=== PATIENT | female | born 1995 | race Caucasian/White ===

== ENCOUNTER 2018-04-06 14:27 | Emergency (ER) | payer OTHER ==
--- NOTE | 2018-04-06 16:27 | RAD ---
INDICATION: Chest pain COMPARISON: None TECHNIQUE: PA and lateral dual-energy views were obtained. FINDINGS: Bones/Soft Tissues: There are no acute bony findings. Cardiomediastinal: The cardiomediastinal silhouette is normal. Lungs: There are no infiltrates. There is no pneumothorax. Pleura: There are no pleural effusions. Other: None IMPRESSION: NEGATIVE EXAMINATION.
[2018-04-06 16:30] LABS: ABS Basophils 0 10^3/ul (0-0.2); ABS Eosinophils 0.2 10^3/ul (0-0.6); ABS Lymphocytes 2.4 10^3/ul (1.0-4.8); ABS Monocytes 0.7 10^3/ul (0-0.8); ABS Neutrophils 9.9 10^3/ul (1.5-7.7); ABS Nucleated RBC 0 10^3/ul; Eosinophil % 1.6 % (0-6); Hematocrit 44 % (35-47); Hemoglobin 14.7 g/dl (12.0-16.0); Lymphocyte % 17.9 % (25-47); Mean Corpuscular HGB Conc 34 g/dl (31-36); Mean Corpuscular Hemoglobin 27 pg (27-31); Mean Corpuscular Volume 81 fL (80-97); Mean Platelet Volume 6.7 um3 (7.4-10.4); Nucleated Red Blood Cells % 0; Platelet Count 364 10^3/ul (150-450); Red Blood Count 5.43 10^6/ul (4.00-5.40); Red Cell Distribution Width 14 % (10.5-15); White Blood Count 13.2 10^3/ul (3.5-10.8)
[2018-04-06 17:24] VITALS: BP 130/81
--- NOTE | 2018-04-07 07:18 | ED ---
HPI Chest Pain - HPI Summary HPI Summary: Patient is a 22-year-old female presenting to the ED with chief complaint of chest pain which felt like a burning to the epigastric region and left anterior wall with radiation of numbness and tingling to the left arm. She states this occurred while at work today. She said they took her blood pressure immediately following which was 192/110. She normally does not have high blood pressure. She does admit to a large amount of weight gain over the past year or so after moving here with her mother. She feels as though her brain is not significantly when she feels full or when she is hungry. She is also feeling that she cannot tell when she has to urinate and has had a few episodes of incontinence over the past 6 months. She is followed closely by her PCP who is working her up for potential causes. 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 She states she does not know if she is prediabetic or has other health issues. She takes no medications. History of intermittent anxiety, but none currently. She states she has had this type of "chest pain" for the past few months, totaling approximately 3 times. She is unsure if this is anxiety driven. - History of Current Complaint Chief Complaint: EDChestPainROMI Time Seen by Provider: 04/06/18 15:42 Hx Obtained From: Patient Hx Last Menstrual Period: DOES NOT HAVE REG PERIODS, HAS IMPLAMON Onset/Duration: Started Hours Ago Timing: Intermittent, Lasting Minutes Initial Severity: Moderate Current Severity: None Pain Intensity: 0 Pain Scale Used: 0-10 Numeric Chest Pain Location: Mid Sternal, Left Anterior Chest Pain Radiates: Yes Chest Pain Radiates To:: Arm Character: Dull/Aching Aggravating Factor(s): Nothing Alleviating Factor(s): Spontaneous Resolution Associated Signs and Symptoms: Positive: Chest Pain, Anxiety, Numbness, Tingling - Risk Factors Pulmonary Embolism Risk Factors: Negative TAD Risk Factors: Negative AMI/ACS Risk Factors: Obesity - Allergy/Home Medications Allergies/Adverse Reactions: Allergies Allergy/AdvReac Type Severity Reaction Status Date / Time hydrocortisone Allergy Hives Verified 04/06/18 14:31 Home Medications: Home Medications NK [No Home Medications Reported] 04/06/18 [History Confirmed 04/06/18] PMH/Surg Hx/FS Hx/Imm Hx Previously Healthy: Yes Endocrine/Hematology History: Denies: Hx Diabetes, Hx Thyroid Disease Cardiovascular History: Denies: Hx Hypertension Respiratory History: Denies: Hx Asthma - Surgical History Surgery Procedure, Year, and Place: Eye surgery as a toddler, [place] 2010 - Immunization History Hx Pertussis Vaccination: No Immunizations Up to Date: Unable to Obtain/Confirm Infectious Disease History: No Infectious Disease History: Denies: Traveled Outside the [place] in Last 30 Days - Social History Occupation: Employed Full-time Alcohol Use: Rare Hx Substance Use: Yes Substance Use Type: Reports: None Hx Tobacco Use: No Smoking Status (MU): Never Smoked Tobacco Review of Systems Constitutional: Negative Negative: Fever, Chills, Fatigue, Skin Diaphoresis Eyes: Negative Positive: Chest Pain Negative: Shortness Of Breath, Cough Negative: Abdominal Pain, Vomiting, Diarrhea, Nausea Genitourinary: Negative Positive: no symptoms reported, see HPI Positive: Paresthesia, Numbness Psychological: Normal All Other Systems Reviewed And Are Negative: Yes Physical Exam Triage Information Reviewed: Yes Vital Signs On Initial Exam: Initial Vitals Temp Pulse Resp BP Pulse Ox 98.7 F 87 16 175/100 100 04/06/18 14:32 04/06/18 14:32 04/06/18 14:32 04/06/18 14:32 04/06/18 14:32 Vital Signs Reviewed: Yes Appearance: Positive: Well-Appearing, Well-Nourished Skin: Positive: Warm, Skin Color Reflects Adequate Perfusion Head/Face: Positive: Normal Head/Face Inspection Eyes: Positive: EOMI, DONNIE, Conjunctiva Clear Neck: Positive: Supple, No Lymphadenopathy Respiratory/Lung Sounds: Positive: Clear to Auscultation, Breath Sounds Present Cardiovascular: Positive: RRR, Pulses are Symmetrical in both Upper and Lower Extremities Musculoskeletal: Positive: Normal, Strength/ROM Intact Neurological: Positive: Speech Normal Psychiatric: Positive: Normal, Affect/Mood Appropriate AVPU Assessment: Alert Diagnostics - Vital Signs Vital Signs Temp Pulse Resp BP Pulse Ox 04/06/18 17:23 97.6 F 74 16 130/81 99 04/06/18 14:32 98.7 F 87 16 175/100 100 - Laboratory Lab Results: Lab Results 04/06/18 04/06/18 04/06/18 Range/Units 16:06 16:06 16:06 WBC 13.2 H (3.5-10.8) 10^3/ul RBC 5.43 H (4.00-5.40) 10^6/ul Hgb 14.7 (12.0-16.0) g/dl Hct 44 (35-47) % MCV 81 (80-97) fL MCH 27 (27-31) pg MCHC 34 (31-36) g/dl RDW 14 (10.5-15) % Plt Count 364 (150-450) 10^3/ul MPV 6.7 L (7.4-10.4) um3 Neut % (Auto) 75.0 (38-83) % Lymph % (Auto) 17.9 L (25-47) % [place] % (Auto) 5.2 (0-7) % Eos % (Auto) 1.6 (0-6) % Baso % (Auto) 0.3 (0-2) % Absolute Neuts (auto) 9.9 H (1.5-7.7) 10^3/ul Absolute Lymphs (auto) 2.4 (1.0-4.8) 10^3/ul Absolute Monos (auto) 0.7 (0-0.8) 10^3/ul Absolute Eos (auto) 0.2 (0-0.6) 10^3/ul Absolute Basos (auto) 0 (0-0.2) 10^3/ul Absolute Nucleated RBC 0 10^3/ul Nucleated RBC % 0 D-Dimer, Quantitative 222 (Less Than 230) ng/mL Sodium 137 (135-145) mmol/L Potassium 3.6 (3.5-5.0) mmol/L Chloride 102 (101-111) mmol/L Carbon Dioxide 24 (22-32) mmol/L Anion Gap 11 (2-11) mmol/L BUN 14 (6-24) mg/dL Creatinine 0.91 (0.51-0.95) mg/dL Est GFR ( Amer) 91.9 (>60) Est GFR (Non-Af Amer) 76.0 (>60) BUN/Creatinine Ratio 15.4 (8-20) Glucose 87 (70-100) mg/dL Lactic Acid (0.5-2.0) mmol/L Calcium 9.6 (8.6-10.3) mg/dL Total Bilirubin 0.60 (0.2-1.0) mg/dL AST 20 (13-39) U/L ALT 21 (7-52) U/L Alkaline Phosphatase 121 H (34-104) U/L CK-MB (CK-2) 3.0 (0.6-6.3) ng/mL Troponin I 0.01 (<0.04) ng/mL B-Natriuretic Peptide ( - 100) pg/mL Total Protein 7.4 (6.4-8.9) g/dL Albumin 4.2 (3.2-5.2) g/dL Globulin 3.2 (2-4) g/dL Albumin/Globulin Ratio 1.3 (1-3) TSH 5.17 (0.34-5.60) mcIU/mL Free T4 0.93 (0.61-1.12) ng/dL Beta HCG, Quant < 0.60 mIU/mL 04/06/18 04/06/18 Range/Units 16:06 16:06 WBC (3.5-10.8) 10^3/ul RBC (4.00-5.40) 10^6/ul Hgb (12.0-16.0) g/dl Hct (35-47) % MCV (80-97) fL MCH (27-31) pg MCHC (31-36) g/dl RDW (10.5-15) % Plt Count (150-450) 10^3/ul MPV (7.4-10.4) um3 Neut % (Auto) (38-83) % Lymph % (Auto) (25-47) % [place] % (Auto) (0-7) % Eos % (Auto) (0-6) % Baso % (Auto) (0-2) % Absolute Neuts (auto) (1.5-7.7) 10^3/ul Absolute Lymphs (auto) (1.0-4.8) 10^3/ul Absolute Monos (auto) (0-0.8) 10^3/ul Absolute Eos (auto) (0-0.6) 10^3/ul Absolute Basos (auto) (0-0.2) 10^3/ul Absolute Nucleated RBC 10^3/ul Nucleated RBC % D-Dimer, Quantitative (Less Than 230) ng/mL Sodium (135-145) mmol/L Potassium (3.5-5.0) mmol/L Chloride (101-111) mmol/L Carbon Dioxide (22-32) mmol/L Anion Gap (2-11) mmol/L BUN (6-24) mg/dL Creatinine (0.51-0.95) mg/dL Est GFR ( Amer) (>60) Est GFR (Non-Af Amer) (>60) BUN/Creatinine Ratio (8-20) Glucose (70-100) mg/dL Lactic Acid 1.1 (0.5-2.0) mmol/L Calcium (8.6-10.3) mg/dL Total Bilirubin (0.2-1.0) mg/dL AST (13-39) U/L ALT (7-52) U/L Alkaline Phosphatase (34-104) U/L CK-MB (CK-2) (0.6-6.3) ng/mL Troponin I (<0.04) ng/mL B-Natriuretic Peptide 88 ( - 100) pg/mL Total Protein (6.4-8.9) g/dL Albumin (3.2-5.2) g/dL Globulin (2-4) g/dL Albumin/Globulin Ratio (1-3) TSH (0.34-5.60) mcIU/mL Free T4 (0.61-1.12) ng/dL Beta HCG, Quant mIU/mL Result Diagrams: 04/06/18 16:06 04/06/18 16:06 Lab Statement: Any lab studies that have been ordered have been reviewed, and results considered in the medical decision making process. Chest Pain Course/Dx - Course Course Of Treatment: During the course of treatment, the patient is evaluated for epigastric and left-sided chest pain radiating into the left arm with numbness and tingling. She endorses the chest pain as a burning which resolved spontaneously after several minutes. Denies any nausea, vomiting, diaphoresis, headache or dizziness with these episodes. She is unsure if this is anxiety driven. She does endorse a large amount of weight gain over the past year since moving to [place]. Lives with her mother. She states she feels that she cannot tell if she is hungry or fall and feels like her hormones are not working properly. I discussed with the patient obtaining an endocrinology consult and have given her a referral to Dr. mayorga. She is however being followed by her PCP and has recent labs obtained as of last week. Labs obtained here today which show a troponin of 0.00. Chest x-ray negative with no cardiopulmonary he's noted. Other labs obtained and are negative. HCG negative. This could be a hormonal imbalance, this could also be from anxiety. She does have a significant amount of weight gain, however I still feel she is low risk for ACD she has no previous cardiac history, age of 22 and no other risk factors noted. While on arrival BP noted to be 175/100, this reduced to 130/81 approximately 30 minutes after arrival. She was not given medication during her stay. Patient is agreeable to be discharged at this time and will follow back up with her PCP early next week. - Chest Pain Differential Diagnosis/HQI/PQRI: Acute NM, ACS, Chest Wall - Diagnoses Provider Diagnoses: Chest pain Discharge - Sign-Out/Discharge Documenting (check all that apply): Patient Departure - Discharge Plan Condition: Stable Disposition: HOME Referrals: Daniel Mayorga MD [Medical Doctor] - Stone Guerrero MD [Primary Care Provider] - Additional Instructions: Please call Dr. Mayorga's office for a follow up If symptoms worsen - you may always return to the ED - Billing Disposition and Condition Condition: STABLE Disposition: Home
== END 2018-04-06 17:23 | disposition home or self-care (01) ==
LOC: ED 14:27
DX: R07.9 Chest pain, unspecified (principal); F41.9 Anxiety disorder, unspecified; R20.0 Anesthesia of skin
CPT/HCPCS: 36415; 71046; 80053; 82553; 83605; 83880; 84439; 84443; 84484; 84702; 85025; 85379; 93005; 99283